=== PATIENT | female | born 1985 | race Caucasian/White ===

== ENCOUNTER 2018-08-12 18:22 | Inpatient (IN) | payer MEDICAID ==
[2018-08-12 19:54] LABS: RUPTURE FETAL MEMBRANES POSITIVE (NEGATIVE)
[2018-08-12] MEDS ORDERED: CARBOPROST 250 MCG INJ IM (21:00)
[2018-08-12] MEDS ORDERED: OXYTOCIN 30 UNITS/LR 500 ML IV ×2 (21:00)
[2018-08-12] MEDS ORDERED: IBUPROFEN 600 MG TAB PO (21:00)
[2018-08-12] MEDS ORDERED: BUTORPHANOL 2 MG INJ IV (21:00)
[2018-08-12] MEDS ORDERED: MISOPROSTOL 200 MCG TAB PR (21:00)
[2018-08-12] MEDS ORDERED: LIDOCAINE 1% (MPF) 30 ML INJ INJ (21:00)
[2018-08-12] MEDS: AMPICILLIN 2 GM/NS (PMX) 100 ML IV (22:01)
[2018-08-12] MEDS: LACTATED RINGER'S 1,000 ML IV* (22:01)
[2018-08-12 22:09] LABS: ADD MAN DIFF? NO
[2018-08-12 22:16] LABS: BASOPHILS % 0.4 % (0.0-2.0); EOSINOPHILS # 0.1 10^3/ul (0.0-0.5); EOSINOPHILS % 1.1 % (0.0-7.0); HEMATOCRIT 42.6 % (37.0-47.0); HEMOGLOBIN 14.3 g/dl (12.0-16.0); LYMPHOCYTES # 2.4 10^3/ul (0.8-2.9); LYMPHOCYTES % 26.8 % (15.0-51.0); MEAN CORPUSCULAR HEMOGLOBIN 28.5 pg (29.0-33.0); MEAN CORPUSCULAR HGB CONC 33.6 g/dl (32.0-37.0); MEAN PLATELET VOLUME 12.6 fl (7.4-10.4); MONOCYTE # 0.6 10^3/ul (0.3-0.9); MONOCYTES % 6.6 % (0.0-11.0); NEUTROPHIL # 5.7 10^3/ul (1.6-7.5); NEUTROPHILS % 64.5 % (39.0-77.0); PLATELET COUNT 232 10^3/UL (140-415); RED BLOOD COUNT 5.01 10^6/ul (4.20-5.40); RED CELL DISTRIBUTION WIDTH 14.3 % (11.5-14.5)
[2018-08-12 22:16] LABS: WHITE BLOOD COUNT 8.9 10^3/ul (4.8-10.8)
[2018-08-12 22:34] LABS: INR 0.89; PARTIAL THROMBOPLASTIN TIME 26.2 Sec (23.0-35.0); PROTIME 12.1 Sec (11.9-14.9); PT RATIO 0.9
[2018-08-12 23:01] LABS: HEPATITIS B SURFACE ANTIGEN NEGATIVE (NEGATIVE)
[2018-08-13] MEDS: AMPICILLIN 1 GM/NS (PMX) 50 ML IV ×3 (01:52→08:57)
[2018-08-13] MEDS: OXYTOCIN 30 UNITS/LR 500 ML IV ×2 (05:05→12:59)
[2018-08-13] MEDS: LACTATED RINGER'S 1,000 ML IV* ×3 (06:08→15:47)
[2018-08-13] MEDS: LACTATED RINGER'S 1,000 ML IV (10:54)
[2018-08-13] MEDS ORDERED: NALOXONE (0.4 MG/ML) INJ IV (11:30)
[2018-08-13] MEDS: FENTAnyl 2MCG/ML-ROPIV 0.2% 100 ML BAG EPI (11:39)
[2018-08-13] MEDS: METHYLERGONOVINE 0.2 MG INJ IM (12:45)
[2018-08-13 15:23] LABS: RAPID PLASMA REAGIN NONREACTIVE (NR)
[2018-08-13] MEDS ORDERED: HYDROCODONE/APAP (5/325) TAB PO (16:00)
[2018-08-13] MEDS ORDERED: MISOPROSTOL 200 MCG TAB PR (16:00)
[2018-08-13] MEDS ORDERED: DIBUCAINE 1% 30 GM OINT PR (16:00)
[2018-08-13] MEDS ORDERED: METHYLERGONOVINE 0.2 MG INJ IM (16:00)
[2018-08-13] MEDS ORDERED: OXYTOCIN 30 UNITS/LR 500 ML IV (16:00)
[2018-08-13] MEDS ORDERED: CARBOPROST 250 MCG INJ IM (16:00)
[2018-08-13] MEDS ORDERED: ACETAMINOPHEN 325 MG TAB PO (16:00)
[2018-08-13] MEDS: IBUPROFEN 600 MG TAB PO (17:07)
[2018-08-13] MEDS: LANOLIN 7 GM TUBE TOP (17:07)
[2018-08-13] MEDS: WITCH HAZEL/GLYCERIN PAD PR (17:08)
[2018-08-13] MEDS: BENZOCAINE 20% 56 ML SPRAY TOP (17:08)
[2018-08-13] MEDS: SENNA/DOCUSATE NA (8.6MG/50MG) TAB PO (22:21)
[2018-08-14] MEDS: IBUPROFEN 600 MG TAB PO ×4 (00:46→18:14)
[2018-08-14 09:24] LABS: ADD MAN DIFF? NO
[2018-08-14 09:27] LABS: WHITE BLOOD COUNT 10.2 10^3/ul (4.8-10.8)
[2018-08-14 09:27] LABS: ABNORMAL IP MESSAGE 1; BASOPHIL # 0.1 10^3/ul (0.0-0.1); BASOPHILS % 0.6 % (0.0-2.0); EOSINOPHILS # 0.1 10^3/ul (0.0-0.5); EOSINOPHILS % 1.2 % (0.0-7.0); HEMATOCRIT 38.1 % (37.0-47.0); HEMOGLOBIN 12.6 g/dl (12.0-16.0); LYMPHOCYTES # 1.8 10^3/ul (0.8-2.9); LYMPHOCYTES % 17.5 % (15.0-51.0); MEAN CORPUSCULAR HEMOGLOBIN 28.5 pg (29.0-33.0); MEAN CORPUSCULAR HGB CONC 33.1 g/dl (32.0-37.0); MEAN CORPUSCULAR VOLUME 86.2 fl (82.0-101.0); MEAN PLATELET VOLUME 13.3 fl (7.4-10.4); MONOCYTE # 0.5 10^3/ul (0.3-0.9); MONOCYTES % 5.1 % (0.0-11.0); NEUTROPHIL # 7.7 10^3/ul (1.6-7.5); NEUTROPHILS % 75.2 % (39.0-77.0); PLATELET COUNT 200 10^3/UL (140-415); RED BLOOD COUNT 4.42 10^6/ul (4.20-5.40); RED CELL DISTRIBUTION WIDTH 14.3 % (11.5-14.5)
[2018-08-14 09:31] LABS: POSITIVE DIFF @See below
[2018-08-14] MEDS: SENNA/DOCUSATE NA (8.6MG/50MG) TAB PO ×2 (09:37→20:55)
[2018-08-15] MEDS: IBUPROFEN 600 MG TAB PO ×3 (00:14→12:22)
[2018-08-15] MEDS: SENNA/DOCUSATE NA (8.6MG/50MG) TAB PO (08:59)
[2018-08-15] MEDS: DIPHTH/TET/ACEL PERTUSS (ADULT) 0.5 ML VIAL IM* (09:00)
== END 2018-08-15 14:40 | disposition home or self-care (01) | DRG 807 ==
LOC: OBT 18:22 → L-D 18:22 → PP1 08-13 15:29 → OBT 20:55 → L-D 20:55
PROVIDERS: Obstetrics & Gynecology
PROC: 10E0XZZ Delivery of Products of Conception, External Approach (ICD-10-PCS; principal; 2018-08-13)
PROC: 0KQM0ZZ Repair Perineum Muscle, Open Approach (ICD-10-PCS; 2018-08-13)
DX: O70.1 Second degree perineal laceration during delivery (principal); Z37.0 Single live birth; Z3A.38 38 weeks gestation of pregnancy
CPT/HCPCS: 62319; 76815; 76818; 84112; 85025; 85610; 85730; 86592; 86850; 86900; 86901; 87340; 90715; 99464